=== PATIENT | female | born 1950 | race Caucasian/White ===

== ENCOUNTER 2020-05-08 13:24 | Day surgery (SDC) | payer MEDICARE ==
[2020-04-30 11:49] LABS: BASOPHILS # (AUTO) 0.1 X10'3 (0-0.2); EOSINOPHILS # (AUTO) 0.2 X10'3 (0-0.9); EOSINOPHILS % (AUTO) 2.8 % (0-6); LYMPHOCYTES # (AUTO) 2.1 X10'3 (1.1-4.8); LYMPHOCYTES % (AUTO) 31.4 % (21-51); MEAN CORPUSCULAR HEMOGLOBIN 31.3 PG (27.0-31.0); MEAN CORPUSCULAR HGB CONC 34.2 g/dL (33.0-36.5); MEAN CORPUSCULAR VOLUME 91.4 FL (78-98); MEAN PLATELET VOLUME 7.8 FL (7.4-10.4); MONOCYTES # (AUTO) 0.6 X10'3 (0-0.9); MONOCYTES % (AUTO) 8.1 % (2-12); NEUTROPHILS # (AUTO) 3.9 X10'3 (1.8-7.7); NEUTROPHILS % (AUTO) 56.7 % (42-75); PRE OP HEMATOCRIT 38.4 % (35.0-45.0); PRE OP HEMOGLOBIN 13.1 g/dL (12.0-16.0); PRE OP PLATELET COUNT 293 X10'3 (140-440); RED CELL DISTRIBUTION WIDTH 12.4 % (11.5-14.5)
[2020-04-30 12:06] LABS: ALBUMIN 4.1 G/DL (3.4-5.0); ALBUMIN/GLOBULIN RATIO 1.2 (1.1-1.5); ALKALINE PHOSPHATASE 47 IU/L (46-116); BLOOD UREA NITROGEN 15 MG/DL (7-18); BUN/CREATININE RATIO 22.7 (6.6-38.0); CALCIUM 9.3 MG/DL (8.5-10.1); CHLORIDE 101 MMOL/L (99-107); CREATININE 0.66 MG/DL (0.40-0.90); PRE OP ALT 34 U/L (30-65); PRE OP ANION GAP 8 (8-16); PRE OP AST 26 U/L (10-37); PRE OP BILIRUB, TOTAL 1.2 MG/DL (0.0-1.0); PRE OP GLUCOSE 105 MG/DL (70-104); PRE OP SODIUM 142 MMOL/L (135-145); TOTAL CARBON DIOXIDE 32.7 MMOL/L (24-32); TOTAL PROTEIN 7.6 G/DL (6.4-8.2); eGFR 88 ML/MIN
[~2020-05-08] VITALS: Ht 152.4 cm; Wt 69.0 kg
[~2020-05-08 13:24] MED LIST: AMLO10TA13 PO; BUPR300T86 PO; CLON-369 PO; DOCUMENT DATE & TIME OF BETA-BLOCKER PO ONE; ESCI20TA39 PO; GABA300T25 PO; HYDR25TA4 PO; LABE300T2 PO; LOSA100T57 PO; MELO-102 PO; MULT-1085 PO; VANCOMYCIN INJ 1000 MG in NORMAL SALINE 250ml IV.SOLN IV ONE; VITAMIN K2 PO; ZOLP10TA PO; ceFAZolin 2gm in dextrose, iso 50 ML IV ONE; famotidine 20mg tablet PO ONE; meperidine/PF 25mg/ml syringe IV PRN; morphine 2 MG/ML inj. syringe IV PRN; morphine 4 MG/ML inj SYRINge IV PRN; ondansetron/PF 4mg/2ml inj IV PRN; proCHLORperazine 10 MG/2 ml inj IV PRN; ringers solution, lacted 1,000 ML IV SCH
[2020-05-08 13:30] VITALS: BP 149/77
[2020-05-08 13:58] LABS: ISTAT ANION GAP 14 (8-12); ISTAT BUN 12 mg/dL (6-19); ISTAT CL 98 mmol/L (99-107); ISTAT CREATININE 0.6 mg/dL (0.6-1.1); ISTAT GLUCOSE 115 mg/dL (70-104); ISTAT HGB 13.6 g/dl (12.0-16.0); ISTAT Hct 40 %PCV (35-48); ISTAT IONIZED CALCIUM 1.24 mmol/L (1.03-1.32); ISTAT K 3.2 mmol/L (3.5-5.1); ISTAT NA 141 mmol/L (135-145); ISTAT TOTAL CO2 29 mmol/L (24-32); ISTAT eGFR > 90 ML/MIN
[2020-05-08] MEDS ORDERED: LIDOcaine 1% 30ml preserv. free vial ONE (14:26)
[2020-05-08] MEDS ORDERED: fentaNYL/PF 50MCG/1 ML 2ML syringe ONE (15:36)
[2020-05-08] MEDS ORDERED: MIDAZolam 5mg/5ml vial ONE (15:37)
[2020-05-08] MEDS ORDERED: BUPIVAcaine/PF 2.5 mg/ml (0.25%) 30ml vial ONE (16:19)
[2020-05-08] MEDS ORDERED: diphenhydrAMINE 50 mg/ml inj ONE (16:23)
[2020-05-08] MEDS ORDERED: ketorolac trometh. 30mg/ml inj. ONE (16:24)
[2020-05-08 16:34] VITALS: BP 134/59
--- NOTE | 2020-05-08 16:34 | NUR ---
Received from OR via , accompanied by Anesthesiologist DR HOOVER and report given by Anesthesiolgist. AWAKENS TO VOICE. VITALS STABLE. DRESSING DI. LAW PAIN. FINGERS WARM AND PINK.
[2020-05-08 16:44] VITALS: BP 131/62
[2020-05-08 16:54] VITALS: BP 127/67
[2020-05-08 17:04] VITALS: BP 136/67
[2020-05-08 17:14] VITALS: BP 143/63
--- NOTE | 2020-05-08 17:34 | NUR ---
AWAKE AND ORIENTED. VITALS STABLE. DRESSING DI. THUMB SPLINT IN PLACE. LAW PAIN. HOME WITH HER SPOUSE AT THIS TIME.
== END 2020-05-08 17:34 | disposition home or self-care (01) ==
LOC: PAS 13:24
PROVIDERS: ATTEND Orthopaedic Surgery
DX: M18.11 Unilateral primary osteoarthritis of first carpometacarpal joint, right hand (principal); S63.041A Subluxation of carpometacarpal joint of right thumb, initial encounter; J45.909 Unspecified asthma, uncomplicated; F32.9 Major depressive disorder, single episode, unspecified; F41.8 Other specified anxiety disorders; X58.XXXA Exposure to other specified factors, initial encounter; Y93.89 Activity, other specified; Y92.89 Other specified places as the place of occurrence of the external cause; Y99.8 Other external cause status; Z20.822 Contact with and (suspected) exposure to COVID-19; Z98.890 Other specified postprocedural states; Z88.6 Allergy status to analgesic agent
CPT/HCPCS: 25447; 36415; 80047; 80053; 85025; 87635; 93005; J1200; J1885; J2001; J2250; J3010; J3370; J3490; L8630; A4215; A6250; A6449; A7000; J7120

== ENCOUNTER → 2020-07-27 | Emergency (ER) | payer MEDICARE ==
[~2020-07-27] VITALS: Ht 152.4 cm; Wt 68.2 kg
[~2020-07-27] MED LIST changes: -DOCUMENT DATE & TIME OF BETA-BLOCKER PO ONE; -VANCOMYCIN INJ 1000 MG in NORMAL SALINE 250ml IV.SOLN IV ONE; -ceFAZolin 2gm in dextrose, iso 50 ML IV ONE; -famotidine 20mg tablet PO ONE; -meperidine/PF 25mg/ml syringe IV PRN; -morphine 2 MG/ML inj. syringe IV PRN; -morphine 4 MG/ML inj SYRINge IV PRN; -ondansetron/PF 4mg/2ml inj IV PRN; -proCHLORperazine 10 MG/2 ml inj IV PRN; -ringers solution, lacted 1,000 ML IV SCH
[2020-07-27 17:31] VITALS: BP 136/64
== END | disposition left against medical advice (07) ==
LOC: ER 17:25
DX: S61.011A Laceration without foreign body of right thumb without damage to nail, initial encounter (principal); Z53.21 Procedure and treatment not carried out due to patient leaving prior to being seen by health care provider; X58.XXXA Exposure to other specified factors, initial encounter

== ENCOUNTER 2020-07-29 08:31 | Emergency (ER) | payer MEDICARE ==
[~2020-07-29] VITALS: Ht 152.4 cm; Wt 67.9 kg
[2020-07-29 08:38] VITALS: BP 170/76
[2020-07-29] MEDS ORDERED: TETanus/Pertussis (Acell)/Diphther VAC/PF (Tdap-Adult) 0.5ml syringe IMVAC ONE (10:10)
== END 2020-07-29 10:49 | disposition home or self-care (01) ==
LOC: ER 08:31
DX: S61.001A Unspecified open wound of right thumb without damage to nail, initial encounter (principal); Z88.8 Allergy status to other drugs, medicaments and biological substances; Z79.899 Other long term (current) drug therapy; W26.8XXA Contact with other sharp object(s), not elsewhere classified, initial encounter; Y93.89 Activity, other specified; Y92.89 Other specified places as the place of occurrence of the external cause; Y99.8 Other external cause status
CPT/HCPCS: 90471; 90715; 99283

== ENCOUNTER 2021-07-09 07:48 | Emergency (ER) | payer MEDICARE ==
[~2021-07-09] VITALS: Ht 152.4 cm; Wt 72.7 kg
[2021-07-09 08:16] LABS: CLARITY,URINE SLIGHTLY CLOUDY (Clear); COLOR,URINE YELLOW (Yellow); GLUCOSE, URINE NEGATIVE (Neg); KETONES,URINE NEGATIVE (Neg); LEUKOCYTE ESTERASE ,URINE NEGATIVE (Neg); NITRITES, URINE NEGATIVE (Neg); OCCULT BLOOD,URINE NEGATIVE (Neg); PROTEIN,URINE NEGATIVE (Neg); UROBILINOGEN,URINE 0.2 E.U/dL (0.2-1.0)
[2021-07-09 08:21] LABS: UA COLLECTION TYPE CLN CATCH MIDSTREAM
[2021-07-09 08:22] LABS: MUCUS STRANDS MANY /LPF (Neg); RBC,URINE 0-2 /HPF (0-2); SQUAMOUS EPITHELIAL CELL,UR MANY /LPF (FEW); WBC,URINE 0-4 /HPF (0-4)
[2021-07-09 08:23] LABS: BACTERIA,URINE FEW /HPF (Neg)
[2021-07-09] MEDS ORDERED: ketorolac trometh. 30mg/ml inj. IV ONE (09:50)
[2021-07-09 10:14] LABS: BASOPHILS % (AUTO) 0.1 % (0-1); EOSINOPHILS % (AUTO) 0 % (0-6); HEMATOCRIT 34.6 % (35.0-45.0); HEMOGLOBIN 12.3 g/dl (12.0-16.0); LYMPHOCYTES # (AUTO) 1.4 X10'3 (1.1-4.8); LYMPHOCYTES % (AUTO) 10.7 % (21-51); MEAN CORPUSCULAR HEMOGLOBIN 31.5 PG (27.0-31.0); MEAN CORPUSCULAR HGB CONC 35.5 g/dL (33.0-36.5); MEAN CORPUSCULAR VOLUME 88.9 FL (78-98); MONOCYTES # (AUTO) 0.8 X10'3 (0-0.9); MONOCYTES % (AUTO) 5.7 % (2-12); NEUTROPHILS # (AUTO) 11.1 X10'3 (1.8-7.7); NEUTROPHILS % (AUTO) 83.5 % (42-75); PLATELET COUNT 300 X10'3 (140-440); WHITE BLOOD COUNT 13.3 X10'3 (4.5-11.0)
[2021-07-09 10:32] LABS: ALANINE AMINOTRANSFERASE 31 U/L (12-78); ALBUMIN 3.9 G/DL (3.4-5.0); ALBUMIN/GLOBULIN RATIO 1.1 (1.1-1.5); ALKALINE PHOSPHATASE 39 IU/L (46-116); ANION GAP 13 (8-16); ASPARTATE AMINO TRANSFERASE 17 U/L (10-37); BLOOD UREA NITROGEN 17 MG/DL (7-18); BUN/CREATININE RATIO 22.4 (6.6-38.0); CALCIUM 9.4 MG/DL (8.5-10.1); CHLORIDE 94 MMOL/L (99-107); CREATININE 0.76 MG/DL (0.40-0.90); GLUCOSE 152 MG/DL (70-104); POTASSIUM 3.4 MMOL/L (3.5-5.1); SODIUM 131 MMOL/L (135-145); TOTAL CARBON DIOXIDE 24.2 MMOL/L (24-32); TOTAL PROTEIN 7.3 G/DL (6.4-8.2); eGFR 75 ML/MIN
[2021-07-09] MEDS ORDERED: MELO7.5T12 PO (11:23)
[2021-07-09] MEDS ORDERED: metoclopramide 5 mg/ml inj IV ONE (11:25)
[2021-07-09 11:46] VITALS: BP 141/77
== END 2021-07-09 11:47 | disposition home or self-care (01) ==
LOC: ER 07:49
DX: S39.012A Strain of muscle, fascia and tendon of lower back, initial encounter (principal); R10.84 Generalized abdominal pain; Z88.5 Allergy status to narcotic agent; Z79.899 Other long term (current) drug therapy; X58.XXXA Exposure to other specified factors, initial encounter; Y93.89 Activity, other specified; Y92.89 Other specified places as the place of occurrence of the external cause; Y99.8 Other external cause status
CPT/HCPCS: 36415; 74176; 80053; 81001; 85025; 96374; 96375; 99284; J1885; J2765

== ENCOUNTER 2024-08-15 13:27 | Outpatient (CLI) | payer MEDICARE ==
[~2024-08-15 13:27] MED LIST changes: +BUPR-480 PO; -BUPR300T86 PO; -LABE300T2 PO; +LABE300T4 PO; -LOSA100T57 PO; +LOSA100T58 PO; +MELO7.5T12 PO; +ZOLP-679 PO; -ZOLP10TA PO
--- NOTE | 2024-08-15 17:51 | RADIOLOGY REPORT ---
PROCEDURE: MR MRI LUMBAR SPINE INDICATION: SPONDYLOSIS W/O MYELOPATHY OR RADICULOPATHY, LUMBAR REGION Exam Date: 08/15/2024 01:35 PM COMPARISON: None TECHNIQUE: MRI lumbar spine without intravenous contrast. FINDINGS: Levoscoliosis. Grade 1 anterolisthesis of L4 on L5. There are degenerative endplate changes includi ng modic endplate changes with anterior and lateral osteophytes throughout the lumbar spine. The visu alized distal spinal cord and conus medullaris are within normal limits. The conus medullaris appear s to terminate within normal limits. The visualized retroperitoneal and paraspinal soft tissues are unremarkable. The following axial levels are detailed below: T12-L1: There is a moderate circumferential disc bulge complicated by facet arthropathy associated w ith moderate right neuroforaminal stenosis. No significant central canal stenosis. L1-L2: There is a moderate circumferential disc bulge complicated by facet arthropathy associated w ith mild to moderate bilateral neuroforaminal stenosis. No significant central canal stenosis. L2-L3: There is a severe circumferential disc bulge complicated by facet arthropathy narrowing the central canal to 7 mm with associated moderate bilateral neuroforaminal stenosis. L3-L4: There is a severe circumferential disc bulge complicated by facet arthropathy narrowing the central canal to 4 mm with associated moderate to severe bilateral neuroforaminal stenosis. L4-L5: There is a severe circumferential disc bulge complicated by facet arthropathy narrowing the central canal to 3 mm with associated moderate bilateral neuroforaminal stenosis. L5-S1: There is a severe circumferential disc bulge complicated by facet arthropathy narrowing the c entral canal to 3 mm with associated moderate bilateral neuroforaminal stenosis. IMPRESSION: 1. 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 Grade 1 rosy listhesis of L4 on L5. Severe central canal stenosis L2-3 through L5-S1. Neural foraminal stenosis a s above. HS:Y
== END 2024-08-15 23:59 | disposition home or self-care (01) ==
LOC: MRI02 13:27
PROVIDERS: ATTEND Family Medicine Sports Medicine
DX: M51.17 Intervertebral disc disorders with radiculopathy, lumbosacral region (principal); M54.50 Low back pain, unspecified; M47.816 Spondylosis without myelopathy or radiculopathy, lumbar region; M48.061 Spinal stenosis, lumbar region without neurogenic claudication; M51.9 Unspecified thoracic, thoracolumbar and lumbosacral intervertebral disc disorder; M48.8X8 Other specified spondylopathies, sacral and sacrococcygeal region; M53.3 Sacrococcygeal disorders, not elsewhere classified; M79.10 Myalgia, unspecified site; M77.9 Enthesopathy, unspecified; M25.561 Pain in right knee; M43.16 Spondylolisthesis, lumbar region; M47.27 Other spondylosis with radiculopathy, lumbosacral region; M48.07 Spinal stenosis, lumbosacral region; M41.86 Other forms of scoliosis, lumbar region
CPT/HCPCS: 72148